=== PATIENT | male | born 1945 | race Caucasian/White ===

== ENCOUNTER 2024-01-01 14:40 | Day surgery (SDC) | payer MEDICARE ==
[2024-01-01] MEDS ORDERED: Depo-Medrol 40 MG/ML IM ONE (14:41)
[2024-01-01] MEDS ORDERED: LIDOCAINE HCL 1% 50 MG/5 ML VL PF IJ ONE (14:41)
[2024-01-01] MEDS ORDERED: Sodium Chloride 0.9(Preservative Free) 10 ML IJ ONE (14:41)
[2024-01-01] MEDS ORDERED: Lactated Ringers 1,000 ML IV ONE (17:56)
--- NOTE | 2024-01-01 19:00 | XRAY ---
Indication: Lumbar SUSHIL. Intraoperative fluoroscopy provided for 14 seconds. Single lateral digital spot image submitted for interpretation demonstrates needle tip projecting posterior to lumbosacral junction interspace. Small amount of contrast injected for needle tip placement. Correlate with intraoperative findings/report.
--- NOTE | 2024-01-02 12:14 | XRAY ---
14 seconds of fluoroscopy was used in surgery for a lumbar SUSHIL.
== END 2024-01-01 17:15 | disposition home or self-care (01) ==
LOC: SDC-PAIN 14:40
PROVIDERS: ATTEND Psychiatry & Neurology Pain Medicine
DX: M54.16 Radiculopathy, lumbar region (principal)
CPT/HCPCS: 62323; 72100; 77003; J2001; Q9966